=== PATIENT | female | born 1990 | race Caucasian/White ===

== ENCOUNTER 2022-10-18 19:58 | Emergency (ER) | payer MEDICAID ==
[~2022-10-18] VITALS: Ht 170.2 cm; Wt 86.6 kg
[2022-10-18 20:11] VITALS: BP_SYST 136; PULSE 107; RESP 23; TEMP 98.2; O2SAT 100
--- NOTE | 2022-10-18 20:17 | NUR ---
ABD/FLANK PAIN 7/10 X 3 WEEKS,FEELS FAINT AT TIMES, PCP TOLD HER SHE IS ANEMIC, 1 MONTH MENSTRUAL CYCLE,ENDOMETRIOSIS HX
--- NOTE | 2022-10-18 20:20 | NUR ---
Patient to ER bed 03 to gown for evaluation. Side rails up. Report given to SELVIN VENEGAS
--- NOTE | 2022-10-18 20:42 | NUR ---
PT TO CT
[2022-10-18] MEDS ORDERED: KETOROLAC TROMETHAMINE 30 MG VIAL IM ONE (20:45)
--- NOTE | 2022-10-18 21:50 | NUR ---
PT TO US
[2022-10-18 21:52] LABS: CALCIUM 7.8 mg/dL (8.4-11.0); CREATININE 0.69 mg/dL (0.55-1.30)
[2022-10-18 21:53] LABS: BASOPHILS % (AUTO) 0.8 % (0.0-2.0); EOSINOPHILS # (AUTO) 0.4 K/uL (0.0-0.4); EOSINOPHILS % (AUTO) 6.5 % (0.0-4.0); HEMATOCRIT 35.2 % (36-48); HEMOGLOBIN 11.8 g/dL (12.0-16.0); LYMPHOCYTES % (AUTO) 31.6 % (20.5-51.5); MEAN CORPUSCULAR HEMOGLOBIN 29 pg (27-31); MEAN CORPUSCULAR HGB CONC 33 % (32-36); MEAN CORPUSCULAR VOLUME 87 fL (79.0-98.0); MONOCYTES # (AUTO) 0.6 K/uL (0.0-1.0); MONOCYTES % (AUTO) 10.2 % (1.7-9.3); NEUTROPHILS # (AUTO) 3.2 K/uL (1.8-7.7); NEUTROPHILS % (AUTO) 50.9 % (40.0-70.0); PLATELET COUNT (AUTO) 345 K/uL (130-430); RED BLOOD CELL COUNT(AUTO) 4.06 MIL/uL (4.2-6.2); RED CELL DISTRIBUTION WIDTH 14.4 % (9.0-15.0); WHITE BLOOD COUNT (AUTO) 6.2 K/uL (4.8-10.8)
[2022-10-18 21:56] LABS: TOTAL BILIRUBIN 0.2 mg/dL (0.0-1.0)
[2022-10-18 23:19] LABS: BILIRUBIN,URINE NEGATIVE (NEGATIVE); BLOOD, URINE 3+ (NEGATIVE); COLOR,URINE YELLOW (YELLOW); GLUCOSE,URINE NEGATIVE (NEGATIVE); KETONES,URINE NEGATIVE (NEGATIVE); LEUKOCYTE ESTERASE ,URINE NEGATIVE (NEGATIVE); NITRITE, URINE NEGATIVE (NEGATIVE); PROTEIN URINE NEGATIVE (NEGATIVE); UROBILINOGEN,URINE 0.2 (0.2-1.0)
[2022-10-18 23:42] LABS: BACTERIA,URINE FEW /HPF (None Seen); CLARITY/URINE HAZY (CLEAR); RBC,URINE >100 /HPF (0-3); WBC,URINE 0-3 /HPF (0-3)
[2022-10-18 23:43] LABS: MUCUS,URINE 1+ /LPF (None Seen)
--- NOTE | 2022-10-19 00:35 | NUR ---
DR LEE AT BEDSIDE DISCUSSING RESULTS
[2022-10-19 00:57] VITALS: BP_SYST 133; PULSE 78; RESP 16; TEMP 97; O2SAT 98
--- NOTE | 2022-10-19 00:57 | NUR ---
Patient given written and verbal discharge instructions and verbalizes understanding. ER Dr. Bradford discussed with patient the results and treatment provided. Patient in stable condition. ID arm band removed. IV catheter removed intact and dressing applied, no active bleeding. Patient educated on pain management and to follow up with PMD. Pain Scale 0. Opportunity for questions provided and answered. Medication side effect fact sheet provided.
== END 2022-10-19 00:57 | disposition home or self-care (01) ==
LOC: SED 19:58
DX: N93.9 Abnormal uterine and vaginal bleeding, unspecified (principal); G89.29 Other chronic pain; R10.30 Lower abdominal pain, unspecified; R11.0 Nausea; K59.00 Constipation, unspecified; Z88.8 Allergy status to other drugs, medicaments and biological substances; Z87.42 Personal history of other diseases of the female genital tract; Z79.899 Other long term (current) drug therapy
CPT/HCPCS: 99285; 74176; 76830; 76857; 80053; 81000; 83690; 85025; 36415; 76376; 81025; 96372; J1885

== ENCOUNTER 2023-08-27 05:11 | Emergency (ER) | payer MEDICAID, OTHER ==
[~2023-08-27] VITALS: Ht 170.2 cm; Wt 91.2 kg
[2023-08-27 05:26] VITALS: BP_SYST 128; PULSE 104; RESP 18; TEMP 97.4; O2SAT 96
[2023-08-27] MEDS ORDERED: NAPR-1172 PO (05:58)
[2023-08-27 06:03] VITALS: BP_SYST 121; PULSE 99; RESP 19; TEMP 96.9; O2SAT 97
== END 2023-08-27 06:04 | disposition home or self-care (01) ==
LOC: SED 05:11
DX: M67.823 Other specified disorders of tendon, right elbow (principal); M79.7 Fibromyalgia; F41.9 Anxiety disorder, unspecified; Z88.5 Allergy status to narcotic agent
CPT/HCPCS: 73090; 81025; 99283